=== PATIENT | female | born 1955 | race Caucasian/White ===

== ENCOUNTER → 2018-01-07 | Outpatient (CLI) | payer OTHER ==
[~2018-01-07] VITALS: Ht 170.2 cm; Wt 50.3 kg
[~2018-01-07] MED LIST: SPIRIVA INH
--- NOTE | ~2018-01-07 | S ---
[facility] [place] [address] [place] [address] SURGICAL PATH RPT PROCEDURE Name: LOUISA NUR Room #: REG [facility].#: [id number] Admission: 01/07/18 Date of : 59 Discharge: Report #: [id number] Path Case #: [id number] PATHOLOGY REPORT COLLECTION DATE: 01/07/2018 RECEIVED DATE: 01/08/2018 SUBMITTING PHYS: Dr. Nile Marinelli OTHER PHYS: Dr. Neville Urban SPECIMEN(S) RECEIVED: A.Polyp @ proximal ascending colon * * * * * * * * * * * * FINAL DIAGNOSIS: Polyp, at proximal ascending colon, endoscopic biopsy: - Tubular adenoma. - Negative for high grade dysplasia. (IUV:mml; 01/11/2018) PATHOLOGIST: Lennie Vee M.D. REPORT ELECTRONICALLY SIGNED BY: Lennie Vee M.D. DATE/TIME: 01/11/2018 13:42 * * * * * * * * * * * * GROSS PATHOLOGY: The specimen is received in formalin, labeled "Louisa Nur and polyp at proximal ascending", are multiple irregular fragments of [facility] soft tissues ranging from 0.1 up to 0.6 cm in greatest dimension and measuring 0.6 x 0.5 x 0.3 cm in aggregate. The largest fragment is inked black. The specimen is entirely submitted in A1. (SWS; 01/08/2018) CLINICAL HISTORY: History polyps, diverticulosis, hemorrhoids INITIAL CPT CODE(S): A; 15829 Professional services performed by [facility] at [facility] [address] [place] [address] Technical services performed by [facility] at [address] [place] [id number]. [facility] [address] [place] [address] SURGICAL PATH RPT PROCEDURE Name: LOUISA NUR Room #: REG [facility]#: [id number] Admission: 01/07/18 Date of : 59 Discharge: Report #: [id number] Path Case #: [id number] [address] PHONE: [phone] DIRECTOR: Tyler Romero M.D. * * * END OF REPORT * * *
--- NOTE | ~2018-01-07 | P ---
[facility] [place] [address] PROCEDURE REPORT Name: LOUISA BATEMAN Room #: REG [facility]#: [id number] Admission: 01/07/18 Attend Phys: Nile Marinelli MD Discharge: Date of : 59 Report #: [id number] THIS REPORT FOR: //name// CC: LEATHA Marinelli BRIEF HISTORY: The patient is a 62-year-old woman with family history of colon cancer, brother age 55 and also personal history of colon polyps, 3 neoplastic polyps 3 years ago. PREOPERATIVE DIAGNOSES: 1. History of colon polyps. 2. Three neoplastic polyps 3 years ago. POSTOPERATIVE DIAGNOSES: 1. 1 cm sessile proximal ascending colon polyp. 2. Mild sigmoid diverticulosis coli. 3. Small internal hemorrhoids. MEDICATIONS: Deep sedation with propofol per anesthesia. SPECIMEN: Polyp from proximal ascending colon. ESTIMATED BLOOD LOSS: 3 mL. PROCEDURE: Colonoscopy to cecum and terminal ileum with snare polypectomy. FINDINGS: Prior to propofol sedation, procedure of colonoscopy discussed with the patient as well as potential risks and its complications. She indicates she understands and desires to proceed. DESCRIPTION OF PROCEDURE: With the patient in left lateral decubitus position, digital examination was completed which revealed no abnormalities. Subsequently, the agreement24 avtal24 video colonoscope was introduced in the rectum, advanced under direct vision to the cecum. Done with minimal difficulty. Cecum was identified by the ileocecal valve and the appendiceal orifice. I was able to visualize the distal segment of the terminal ileum, which was inspected and noted to be unremarkable. At that point, the scope was ____ and careful circumferential views obtained including retroflexing the scope in the ascending colon. As the scope was withdrawn, the prep was noted to be good. Mucosa within normal limits, normal vascular pattern, normal light reflex. In the proximal ascending colon, a 1 cm sessile polyp was seen and removed by cold snare polypectomy. Scope was further withdrawn and no additional neoplastic lesions were seen. No abnormalities were noted until the sigmoid colon was reached and a few small scattered diverticula were seen. There was no endoscopic evidence of diverticulitis. Scope was withdrawn in the rectum. Upon [facility] [address] [place] [address] PROCEDURE REPORT Name: FRANSICOLOUISA JULIAN Room #: REG [facility]#: [id number] Admission: 01/07/18 Attend Phys: Nile Marinelli MD Discharge: Date of : 59 Report #: [id number] retroflexion, small hemorrhoids were seen. No other rectal abnormalities were identified. Scope was withdrawn. The patient tolerated the procedure well. CONDITION OF THE PATIENT UPON DISCHARGE: Following procedure, the patient drowsy, aroused, conversant and she will be discharged home when fully ambulatory. INSTRUCTIONS TO THE PATIENT AND FAMILY AT THE TIME OF DISCHARGE: A 1 cm polyp identified and removed as described above. Due to the findings of a 1 cm polyp, personal history of polyps and family history of colon cancer in a sibling age 55, I would recommend she return in 3 years for a surveillance colonoscopy. She will otherwise return to care of Dr. Leatha Urban and return to see me as needed. Withdrawal time from the cecum was 12 minutes 34 seconds. Previous colonoscopy was little more than 3 years ago. By: [id number] Nile Marinelli MD /nt
== END ==
LOC: GI 08:21
DX: Z09 Encounter for follow-up examination after completed treatment for conditions other than malignant neoplasm (principal); K63.5 Polyp of colon; K57.30 Diverticulosis of large intestine without perforation or abscess without bleeding; K64.8 Other hemorrhoids; F17.210 Nicotine dependence, cigarettes, uncomplicated; J45.909 Unspecified asthma, uncomplicated; Z85.828 Personal history of other malignant neoplasm of skin; Z86.010 Personal history of colon polyps; Z80.0 Family history of malignant neoplasm of digestive organs; Z98.890 Other specified postprocedural states; Z88.2 Allergy status to sulfonamides
CPT/HCPCS: 62110; 62900